=== PATIENT | female | born 1955 | race Caucasian/White ===

== ENCOUNTER 2018-10-23 12:37 | Emergency (ER) | payer BC ==
--- NOTE | 2018-10-23 14:00 | NUR ---
Placed in bed 6 for exam. MSE completed by myself.
--- NOTE | 2018-10-23 14:10 | NUR ---
Patient arrived via POV, AAOx4, ambulatory with steady gait. Patient c/c of shortness of breath, palpitations, and anxious feelings. Patient states she has taken xanax with relief. No SOB, CP, or palpitation feelings noted at this time. Vital signs are stable. Will continue to follow up and monitor.
--- NOTE | 2018-10-23 14:12 | NUR ---
HAROLDO Cohen examining patient.
[2018-10-23 15:11] LABS: BASOPHILS # (AUTO) 0.1 K/uL (0.0-0.2); BASOPHILS % (AUTO) 0.9 % (0.0-2.0); EOSINOPHILS % (AUTO) 0.4 % (0.0-4.0); HEMATOCRIT 40.3 % (36-48); HEMOGLOBIN 13.7 g/dL (12.0-16.0); LYMPHOCYTES # (AUTO) 1.5 K/uL (1.0-5.5); LYMPHOCYTES % (AUTO) 13.1 % (20.5-51.5); MEAN CORPUSCULAR HEMOGLOBIN 32 pg (27-31); MEAN CORPUSCULAR HGB CONC 34 % (32-36); MEAN CORPUSCULAR VOLUME 93 fL (79.0-98.0); MONOCYTES # (AUTO) 0.9 K/uL (0.0-1.0); MONOCYTES % (AUTO) 8.3 % (1.7-9.3); NEUTROPHILS # (AUTO) 8.7 K/uL (1.8-7.7); NEUTROPHILS % (AUTO) 77.3 % (40.0-70.0); PLATELET COUNT (AUTO) 277 K/uL (130-430); RED BLOOD CELL COUNT(AUTO) 4.34 MIL/uL (4.2-6.2); RED CELL DISTRIBUTION WIDTH 13.3 % (9.0-15.0); WHITE BLOOD COUNT (AUTO) 11.3 K/uL (4.8-10.8)
[2018-10-23 15:24] LABS: CALCIUM 9.7 mg/dL (8.4-11.0); CREATININE 0.66 mg/dL (0.55-1.30); POTASSIUM 4.3 mmol/L (3.5-5.1)
[2018-10-23 15:28] LABS: TOTAL BILIRUBIN 0.6 mg/dL (0.0-1.0)
[2018-10-23 15:45] VITALS: BP_SYST 150
--- NOTE | 2018-10-23 15:45 | NUR ---
Patient given written and verbal discharge instructions and verbalizes understanding. ER MD discussed with patient the results and treatment provided. Patient in stable condition. ID arm band removed. IV catheter removed intact and dressing applied, no active bleeding. No Rx given. Patient educated on pain management and to follow up with PMD or psychiatrist. Pain Scale 0/10. Opportunity for questions provided and answered. Medication side effect fact sheet provided.
== END 2018-10-23 15:45 | disposition home or self-care (01) ==
LOC: SED 12:37
DX: F41.9 Anxiety disorder, unspecified (principal); R03.0 Elevated blood-pressure reading, without diagnosis of hypertension
CPT/HCPCS: 36415; 70450-TC; 71045; 80053; 84484; 85025; 85379; 99284

== ENCOUNTER 2020-06-28 16:05 | Emergency (ER) | payer BC ==
[~2020-06-28] VITALS: Ht 162.6 cm; Wt 86.2 kg
[2020-06-28 16:21] VITALS: BP_SYST 161
[2020-06-28] MEDS ORDERED: NAPR-690 PO (18:11)
[2020-06-28 18:35] VITALS: BP_SYST 161
== END 2020-06-28 18:36 | disposition home or self-care (01) ==
LOC: SED 16:05
DX: S63.502A Unspecified sprain of left wrist, initial encounter (principal); S70.02XA Contusion of left hip, initial encounter; I10 Essential (primary) hypertension; F41.9 Anxiety disorder, unspecified; W18.39XA Other fall on same level, initial encounter; Y93.89 Activity, other specified; Y92.89 Other specified places as the place of occurrence of the external cause; Y99.8 Other external cause status
CPT/HCPCS: 72192-TC; 73564; 76376; 99284